=== PATIENT | female | born 1965 | race Caucasian/White ===

== ENCOUNTER → 2020-06-27 15:52 | Outpatient (CLI) | payer OTHER, SELFPAY ==
--- NOTE | ~2020-06-27 | XR_ITS ---
XR knee LT min 4V DATE: 06/27/2020 16:26 INDICATION: Left knee pain TECHNIQUE: [place] and standing AP, PA and lateral views COMPARISON: None FINDINGS: No fracture or dislocation is evident. There is slight periarticular spurring of the patella. No fracture or dislocation, periosteal reaction or bone destruction. No radiopaque intra-articular lo ose body or chondrocalcinosis. IMPRESSION: Slight periarticular spurring of the patella consistent with osteoarthritis Reviewed, dictated and finalized at location B. IMPRESSION: Slight periarticular spurring of the patella consistent with osteoa rthritis
--- NOTE | ~2020-06-27 | XR_ITS ---
XR knee RT min 4V DATE: 06/27/2020 16:26 INDICATION: Right knee pain TECHNIQUE: [place] and standing AP, PA and lateral views COMPARISON: None FINDINGS: Mild suprapatellar knee joint effusion. There is minimal periarticular spurring of the patella. Osteopenia. No fracture, dislocation, periosteal reaction or bone destruction. No radiopaque intra-articular loos e body or chondrocalcinosis. IMPRESSION: Small knee joint effusion Minimal periarticular spurring of the patella consistent with osteoarthritis Reviewed, dictated and finalized at location B.
== END ==
PROVIDERS: PCP Family Medicine; Visit Provider Physician Assistant Medical
DX: M25.461 Effusion, right knee (principal); M17.0 Bilateral primary osteoarthritis of knee
CPT/HCPCS: 73564

== ENCOUNTER 2020-12-04 11:47 | Emergency (ER) | payer OTHER, SELFPAY ==
--- NOTE | ~2020-12-04 | XR_ITS ---
EXAMINATION: XR tibia fibula RT 2V EXAM DATE: 12/04/2020 12:54 INDICATION: Right calf pain. TECHNIQUE: Right tibia/fibula frontal and lateral projections obtained and reviewed. Correlation is m matt to right knee examination 06/27/2020. FINDINGS: Right tibial and fibular shafts unremarkable. There are no acute fractures or dislocations identified. There is no subcutaneous gas. There is small joint effusion. There are no radiopaque foreign bodies. IMPRESSION: Small right knee joint effusion. Reviewed, dictated and finalized at location B.
--- NOTE | ~2020-12-04 | US_ITS ---
EXAMINATION: US venous doppler LE RT EXAM DATE: 12/04/2020 14:11 INDICATION: Right leg pain. TECHNIQUE: Multiple grayscale, color flow and Doppler images of the right lower extremity deep venous system were obtained and reviewed. There is no prior study for comparison. FINDINGS: The right common femoral, femoral and profunda veins demonstrate normal color flow, respira tory variation, augmentation and compressibility. Compressibility, color flow confirmed within the r ight popliteal, posterior tibial, peroneal, and greater saphenous veins. IMPRESSION: 1. No right lower extremity deep venous thrombosis. Reviewed, dictated and finalized at location B.
[2020-12-04 11:52] VITALS: BP 137/90; PULSE 84; RESP 16; TEMP 36.8; O2SAT 100
--- NOTE | 2020-12-04 12:48 | ED.GENADULT ---
HPI - General Adult General Chief complaint: Extremity Injury, Lower Stated complaint: poss dvt Time Seen by Provider: 12/04/20 12:03 Source: patient History of Present Illness HPI narrative: Patient is a 55 y/o female complaining of right lower leg pain starting 2 days ago. Pain is located in posterior aspect of right lower leg. She denies any recent injury. She describes her pain as sharp and rates her pain as 7/10. Movement seems to aggravate her pain. There is no pain radiation. She has no chest pain or SOB. Related Data Home Medications Medication Instructions Recorded Confirmed ivermectin 1 % topical cream 1 applic TOPICAL DAILY 03/28/19 09/26/20 levonorgestrel 20 mcg/24 hours (6 1 device I-UTERINE ONCE 03/28/19 09/26/20 yrs) 52 mg intrauterine device metronidazole 0.75 % topical gel 1 applic TOPICAL DAILY 03/28/19 09/26/20 cholecalciferol (vitamin D3) 10 10 mcg PO DAILY 09/26/20 09/26/20 mcg (400 unit) capsule Allergies Allergy/AdvReac Type Severity Reaction Status Date / Time aspirin Allergy Unknown gi upset Verified 09/26/20 09:20 metoprolol Allergy Unknown Unknown Verified 09/26/20 09:20 Review of Systems Constitutional: Constitutional: Denies chills, Denies fever(s), Denies headache(s) and Denies weakness Eyes: Eyes: Denies blurry vision ENT: Denies headache(s) and Denies neck pain Cardiovascular: Cardiovascular: Denies chest pain and Denies dyspnea Respiratory: Respiratory: Denies cough and Denies dyspnea Gastrointestinal: Gastrointestinal: Denies abdominal pain, Denies diarrhea, Denies nausea and Denies vomiting Genitourinary: Genitourinary: Denies hematuria and Denies dysuria Musculoskeletal: Musculoskeletal: Reports as per HPI, Denies back pain, Denies neck pain and Reports other (right leg pain) Neurologic: Denies headache(s) and Denies weakness [facility] Past Medical History Medical History (Updated 12/04/20 @ 14:45 by Ruthann Lee MD) 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) Peptic ulcer, site unspecified, unspecified as acute or chronic, without hemorrhage or perforation Wedge compression fracture of unspecified thoracic vertebra, subsequent encounter for fracture with routine healing Family History Family History Father Hypertension Malignant neoplasm of prostate, Onset Age: 86 Mother Hypertension, Onset Age: 81 Family history of cardiovascular disease, Onset Age: 81 Family history of peptic ulcer, Onset Age: 81 Family history of gallbladder disease, Onset Age: 81 Family history of lupus erythematosus, Onset Age: 81 Other Family history of multiple sclerosis Family history of osteoporosis Social History Social History Alcohol intake: current Exam Const: General: no acute distress and well developed Orientation/consciousness: oriented to person, oriented to place, oriented to time and patient oriented x3 HENMT: Head: normocephalic Ears: external ears normal General nose exam: Normal external nose present Eyes: General: appearance normal, both eyes and all related structures Conjunctivae: conjunctivae normal Neck: Neck: normal visual inspection and full ROM Chest: Chest palpation & inspection: normal inspection of the chest and no tenderness Resp: Effort & Inspection: normal respiratory effort Auscultation: clear to auscultation bilaterally Cardio: Rate: regular rate Rhythm: regular rhythm GI: GI Palp: No abdominal tenderness and Yes Soft to palpation Skin: General skin exam: normal color and turgor normal Neuro: General: oriented to person, oriented to place, oriented to time and patient oriented x3 Cognition (Neuro): normal cognition Extrem: General: normal to inspection, full ROM and no pedal edema Right lower extremity: lower leg Details: no eryth
[2020-12-04 12:56] LABS: Basophils Absolute Auto 0.1 K/mm3 (0.0-0.1); Basophils Percent Auto 0.5 % (0.2-1.2); Eosinophils Absolute Auto 0.1 K/mm3 (0-0.3); Eosinophils Percent Auto 0.7 % (0-4.4); Hematocrit 41.4 % (37.0-47.0); Hemoglobin 13.6 g/dL (12.0-15.0); Immature Granulocyte Absolute 0.02 K/mm3 (0.00-0.031); Immature Granulocyte Percent A 0.2 % (0-0.5); Lymphocytes Absolute Auto 1.34 K/mm3 (0.9-3.2); Lymphocytes Percent Auto 14.3 % (18.3-44.2); Mean Corpuscular HGB Conc 32.9 g/dl (32-36); Mean Corpuscular Hemoglobin 28.9 pg (26-34); Mean Corpuscular Volume 88.1 fl (80-100); Mean Platelet Volume 9.4 fl (7.4-10.4); Monocytes Absolute Auto 0.6 K/mm3 (0.1-0.6); Monocytes Percent Auto 6.1 % (2.6-8.5); Neutrophils Absolute Auto 7.3 K/mm3 (1.3-6.7); Neutrophils Percent Auto 78.2 % (45.5-73.1); Platelet Count Result 254 k/mm3 (150-375); Red Cell Distribution Width 12.8 % (11.5-14.5); White Blood Count 9.4 K/mm3 (4.5-10.0)
[2020-12-04 13:12] LABS: Anion Gap 9 mmol/L (8-16); Blood Urea Nitrogen 13 mg/dL (7-17); Calcium 9.1 mg/dL (8.4-10.2); Carbon Dioxide 23 mmol/L (22-30); Chloride 105 mmol/L (98-107); Estimated Glomerular Filt Rate > 60; Glucose 111 mg/dL (65-110); Potassium 4.6 mmol/L (3.4-5.0); Sodium 137 mmol/L (137-145)
[2020-12-04 14:52] VITALS: BP 139/88; PULSE 69; RESP 16; O2SAT 100
== END 2020-12-04 14:53 | disposition home or self-care (01) ==
PROVIDERS: Emergency Provider Emergency Medicine; PCP Family Medicine
DX: M79.604 Pain in right leg (principal)
CPT/HCPCS: 36415; 73590; 80048; 85025; 93971; 99284

== ENCOUNTER → 2021-11-27 13:48 | Outpatient (CLI) | payer OTHER, SELFPAY ==
--- NOTE | ~2021-11-27 | XR_ITS ---
EXAM: XR foot RT min 3V DATE: 11/27/2021 14:31 HISTORY: PAIN UNDER TOES FOR 1 YEAR NO INJURY . COMPARISON: None available. FINDINGS: Decreased mineralization. No fracture or dislocation. No lytic or blastic lesion. Joint sp aces are maintained. Prominent os trigonum. Plantar enthesopathy. Stable osseous excrescence off the superior margin of the navicular bone. No erosion or periosteal change. Soft tissues within normal li mits. IMPRESSION: Prominent os trigonum which can be a source of posterior ankle pain in some patients. Ky icular osteochondroma, unchanged. Plantar enthesopathy. Reviewed, dictated and finalized at location K. IMPRESSION: Prominent os trigonum which can be a source of posterior ankle pain in some patients. Navicular osteochondroma, unchanged. Plantar enthesopathy.
== END ==
PROVIDERS: PCP Family Medicine; Visit Provider Physician Assistant
DX: M79.671 Pain in right foot (principal); M77.31 Calcaneal spur, right foot
CPT/HCPCS: 73630

== ENCOUNTER 2024-11-23 01:51 | Day surgery (SDC) | payer OTHER, SELFPAY ==
[2024-11-10 11:10] VITALS: BMI 25.9
[2024-11-23 12:12] VITALS: BP 135/92; PULSE 77; RESP 16; TEMP 36.8; O2SAT 99; BMI 25.3
[2024-11-23] MEDS: LACTATED RINGERS 1,000 ML 150 ML IV CONT (12:31)
--- NOTE | 2024-11-23 12:40 | WPDANESEPPF ---
Anes - Initial Pre Proc Eval Procedure: Operation Date: 11/23/24 13:30 Proposed Procedures p Screening Colonoscopy - Bentley Newell MD Date/Time: 11/23/24 12:40 Surgeon: Bentley Newell MD Pre Op Diagnosis: Benign neoplasm of colon, unspecified Patient Data Age: 59 Gender: F Height: 1.7 m Weight: 73.4 kg Last Vital Signs Temp 36.8 C 11/23/24 12:12 Pulse 77 11/23/24 12:12 Resp 16 11/23/24 12:12 BP 135/92 H 11/23/24 12:12 Pulse Ox 99 11/23/24 12:12 O2 Del Method Room Air 11/23/24 12:12 Allergies Allergy/AdvReac Type Severity Reaction Status Date / Time aspirin Allergy Unknown gi upset Verified 11/23/24 12:20 metoprolol Allergy Unknown Unknown Verified 11/23/24 12:20 Home Medications ?Medication ?Instructions ?Recorded ?Confirmed ?Type metronidazole 0.75 % topical gel 1 applic topical DAILY 03/28/19 11/23/24 History cholecalciferol (vitamin D3) 10 10 mcg PO DAILY 09/26/20 11/23/24 History mcg (400 unit) capsule candesartan 32 mg tablet 32 mg PO DAILY #90 tabs 05/06/24 11/23/24 Rx famotidine 40 mg tablet See Rx Instructions .Route 09/05/24 11/23/24 Rx .COMPLEX #90 tabs ivermectin 1 % topical cream 1 applic topical DAILY 11/10/24 11/23/24 History (Soolantra) Patient hx anesthesia problems: none Family hx anesthesia problems: none Results Review: All pre-operative results and documents have been reviewed as part of the pre-operative evaluation. 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) Peptic ulcer, site unspecified, unspecified as acute or chronic, without hemorrhage or perforation Wedge compression fracture of unspecified thoracic vertebra, subsequent encounter for fracture with routine healing Family History Family History Father Hypertension Malignant neoplasm of prostate, Onset Age: 86 Mother Hypertension, Onset Age: 81 Family history of cardiovascular disease, Onset Age: 81 Family history of peptic ulcer, Onset Age: 81 Family history of gallbladder disease, Onset Age: 81 Family history of lupus erythematosus, Onset Age: 81 Other Family history of multiple sclerosis Family history of osteoporosis Social History Social History Smoking status: Never smoker Alcohol intake: current Lack of Transportation: No Lack of Food: Never True Current Housing: I Have Housing Concerned About Future Housing: No Difficulty Paying Gas/Electric Bills: No Difficulty Paying for Meds: No Currently Unemployed: No Education: Master's Degree or Higher Difficulty w/ Childcare or Family Care: No Anes - Eval Final PreProcedure Day of Procedure 11/23/24 12:40 Patient weight: normal Heart: regular rate and rhythm Lungs: clear to auscultation Airway: Mallampati scale class 1 Neurological: alert and oriented Last oral intake: >/= 8 hours ASA classification: II Emergent: no Anesthetic plan: proceed Anesthesia type and monitoring: general and standard monitoring Results Review: All pre-operative results and documents have been reviewed as part of the pre-operative evaluation. Informed Consent: The patient's anesthetic plan and its attendant risks and benefits were discussed with the patient/family/POA. Questions were solicited and answers provided to the satisfaction of the patient/family/POA.
--- NOTE | 2024-11-23 13:53 | PM.IMHP ---
H&P: HPI History of Present Illness Date/Time: 11/23/24 13:53 Chief Complaint: History of colon polyps Narrative: The patient has a history of colonic polyps, the last colonoscopy was 5 years ago. 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) Peptic ulcer, site unspecified, unspecified as acute or chronic, without hemorrhage or perforation Wedge compression fracture of unspecified thoracic vertebra, subsequent encounter for fracture with routine healing Family History Family History Father Hypertension Malignant neoplasm of prostate, Onset Age: 86 Mother Hypertension, Onset Age: 81 Family history of cardiovascular disease, Onset Age: 81 Family history of peptic ulcer, Onset Age: 81 Family history of gallbladder disease, Onset Age: 81 Family history of lupus erythematosus, Onset Age: 81 Other Family history of multiple sclerosis Family history of osteoporosis Social History Social History Smoking status: Never smoker Alcohol intake: current Lack of Transportation: No Lack of Food: Never True Current Housing: I Have Housing Concerned About Future Housing: No Difficulty Paying Gas/Electric Bills: No Difficulty Paying for Meds: No Currently Unemployed: No Education: Master's Degree or Higher Difficulty w/ Childcare or Family Care: No Meds Home Medications and Allergies Home Medications ?Medication ?Instructions ?Recorded ?Confirmed ?Type metronidazole 0.75 % topical gel 1 applic topical DAILY 03/28/19 11/23/24 History cholecalciferol (vitamin D3) 10 10 mcg PO DAILY 09/26/20 11/23/24 History mcg (400 unit) capsule candesartan 32 mg tablet 32 mg PO DAILY #90 tabs 05/06/24 11/23/24 Rx famotidine 40 mg tablet See Rx Instructions .Route 09/05/24 11/23/24 Rx .COMPLEX #90 tabs ivermectin 1 % topical cream 1 applic topical DAILY 11/10/24 11/23/24 History (Soolantra) Allergies Allergy/AdvReac Type Severity Reaction Status Date / Time aspirin Allergy Unknown gi upset Verified 11/23/24 12:20 metoprolol Allergy Unknown Unknown Verified 11/23/24 12:20 Vital Signs Vital Signs - 24 hr 11/23/24 12:12 Temperature 98.2 F Pulse Rate 77 Respiratory Rate 16 Blood Pressure 135/92 H Pulse Oximetry 99 Oxygen Delivery Room Air Exam Const: General: cooperative and healthy appearing Resp: Effort & Inspection: normal respiratory effort and able to speak in complete sentences Auscultation: clear to auscultation bilaterally Cardio: Rate: regular rate Rhythm: regular rhythm GI: Inspection: normal to inspection GI Palp: No No hepatosplenomegaly present Auscultation: normal bowel sounds Rectal Exam: deferred Skin: General skin exam: normal color Psych: Appearance: grossly normal Mental Status: mental status grossly normal Assessment and Plan Assessment and plan (1) History of colonic polyps: Code(s): Z86.0100 - Personal history of colon polyps, unspecified Status: Acute Assessment and Plan: The patient is deemed a good candidate for the procedure. Consent signed. Will proceed.
--- NOTE | 2024-11-23 14:18 | S_PTH ---
PATIENT: Marivel Van LOC: [facility] U#:[id number] AGE/SX: 59/F ROOM: RE11/23/[address]: Bentley Newell MD : 1965 BED: DIS: 11/23/2024 SPEC #: [id number] RECD: 11/24/24 08:59 STATUS: LINDA REQ #: [id number] CHETAN: 11/23/24 14:[address]: Bentley Newell DEPT: [facility] Surgical RECD BY: Cori Dominguez ENTERED: 11/24/24 09:00 SP TYPE: Surgical OTHR DR: Milan Mclain MD Tissues: A - Colon Polypectomy B - Colon Polypectomy Procedures: Hematoxylin and Eosin Stain Gross and Microscopic Level 4
[2024-11-23 14:20] VITALS: BP 110/62; PULSE 65; RESP 17; O2SAT 100
[2024-11-23 14:30] VITALS: BP 116/74; PULSE 60; RESP 17; O2SAT 100
[2024-11-23 14:40] VITALS: BP 133/83; PULSE 60; RESP 16; O2SAT 100
== END 2024-11-23 14:45 | disposition home or self-care (01) ==
PROVIDERS: PCP Family Medicine; Referring Provider Family Medicine; Visit Provider Internal Medicine Gastroenterology
PROC: 0DJD8ZZ Inspection of Lower Intestinal Tract, Via Natural or Artificial Opening Endoscopic (ICD-10-PCS; CPT 45378; principal; 2024-11-23 13:30)
DX: Z12.11 Encounter for screening for malignant neoplasm of colon (principal); K63.5 Polyp of colon; D50.0 Iron deficiency anemia secondary to blood loss (chronic); Z87.11 Personal history of peptic ulcer disease; Z80.42 Family history of malignant neoplasm of prostate; Z82.49 Family history of ischemic heart disease and other diseases of the circulatory system
CPT/HCPCS: 45385; 88305; J2003; J2704; J7120